=== PATIENT | female | born 1945 | race Caucasian/White ===

== ENCOUNTER → 2016-08-30 | Outpatient (REF) | payer MEDICARE ==
[~2016-08-30] MED LIST: /DULO30CA OR; /QUET10TA OR; /TIOT18INH INH; ABIL2TAB; ABIL2TAB OR; ACET500C OR; ALBUTEROL LIQ; ALLE25CA OR; CLAR5CHW; DULO20CA OR; FAMCICLOVIR PO; FOLI1TAB; FOLI1TAB OR; LEVO150T9 OR; LYSINE OR; NASOCORT; NIAC10TA; RISP1TAB OR; SANC20TA OR; SANTURA; SIMV20TA2; SIMV40TA2 OR; THERGRAN; TOPI50TA OR; TRAM100T OR; TRAM50TA2; ULTRTA OR; VENTAER IN; VITA100027 OR; VITA100C7; VITAMIN B COMPLE1 OR; VITAMIN D50000 UNT OR; [UNRECOGNIZED DRUG - OTHER]; [UNRECOGNIZED DRUG - OTHER]; [UNRECOGNIZED DRUG - OTHER] OR; [UNRECOGNIZED DRUG - OTHER] OR
[2016-08-30 20:44] LABS: BANDS 1 % (< 11)
== END ==
LOC: M LAB REF 16:52
PROVIDERS: ATTEND Nurse Practitioner Family
DX: R19.7 Diarrhea, unspecified (principal)

== ENCOUNTER → 2017-03-04 | Outpatient (CLI) | payer MEDICARE ==
[2017-03-04 08:45] LABS: ALBUMIN 3.5 GM/DL (3.2-5.2); ALBUMIN/GLOBULIN RATIO 1.03 (1.00-1.93); ALKALINE PHOSPHATASE 95 U/L (45-117); ALT/SGPT 23 U/L (12-78); ANION GAP 7 MEQ/L (8-16); AST/SGOT 19 U/L (15-37); BLOOD UREA NITROGEN 23 MG/DL (7-18); CALCIUM LEVEL 8.6 MG/DL (8.8-10.2); CARBON DIOXIDE LEVEL 28 MEQ/L (21-32); CHLORIDE LEVEL 111 MEQ/L (98-107); CREATININE FOR GFR 0.84 MG/DL (0.55-1.02); GLOMERULAR FILTRATION RATE > 60.0 (>39); GLUCOSE, FASTING 72 MG/DL (83-110); LITHIUM LEVEL 0.27 MEQ/L (0.60-1.20); POTASSIUM SERUM 4.1 MEQ/L (3.5-5.1); SODIUM LEVEL 146 MEQ/L (136-145); TOTAL PROTEIN 6.9 GM/DL (6.4-8.2)
== END ==
LOC: M LAB 07:43
PROVIDERS: ATTEND Psychiatry & Neurology Psychiatry
DX: Z51.81 Encounter for therapeutic drug level monitoring (principal); Z79.899 Other long term (current) drug therapy

== ENCOUNTER → 2018-01-19 | Outpatient (CLI) | payer MEDICARE | LOC: M RAD 17:35 | DX: M25.562 Pain in left knee (principal) | CPT/HCPCS: 73721 ==

== ENCOUNTER → 2018-03-01 | Outpatient (REF) | payer MEDICARE ==
[2018-03-01 18:55] LABS: C REACTIVE PROTEIN QUANTITATIV 0.44 MG/DL (0.00-0.30)
[2018-03-07 00:06] LABS: ANCA-ATYPICAL <1:20 titer (Neg:<1:20); ANTI-SACCHAROMYCES CEREV. IgA 106.1 Units (0.0-24.9); ANTI-SACCHAROMYCES CEREV. IgG 57.9 Units (0.0-24.9); CYTOPLASMIC NEUTROP AB ANCA-C <1:20 titer (Neg:<1:20); PERINUCLEAR AB ANCA-P <1:20 titer (Neg:<1:20)
== END ==
LOC: M LAB REF 16:58
DX: R19.7 Diarrhea, unspecified (principal); R19.4 Change in bowel habit; R10.32 Left lower quadrant pain
CPT/HCPCS: 86256

== ENCOUNTER → 2018-05-03 | Outpatient (CLI) | payer MEDICARE ==
[~2018-05-03] MED LIST changes: -/DULO30CA OR; -/QUET10TA OR; -/TIOT18INH INH; -ABIL2TAB; -ABIL2TAB OR; -ACET500C OR; -ALBUTEROL LIQ; -ALLE25CA OR; -CLAR5CHW; -DULO20CA OR; +E-Z-GAS II EFFERVESCENT PACKET (SODIUM BICARB./CITRIC ACID/SIMETHICONE) As Ordered; +E-Z-HD 98% w/w 340GM SUSP BTL As Ordered; +E-Z-PAQUE 96% w/w SUSP 176GM BTL As Ordered; -FAMCICLOVIR PO; -FOLI1TAB; -FOLI1TAB OR; -LEVO150T9 OR; -LYSINE OR; -NASOCORT; -NIAC10TA; -RISP1TAB OR; -SANC20TA OR; -SANTURA; -SIMV20TA2; -SIMV40TA2 OR; -THERGRAN; -TOPI50TA OR; -TRAM100T OR; -TRAM50TA2; -ULTRTA OR; -VENTAER IN; -VITA100027 OR; -VITA100C7; -VITAMIN B COMPLE1 OR; -VITAMIN D50000 UNT OR; -[UNRECOGNIZED DRUG - OTHER]; -[UNRECOGNIZED DRUG - OTHER]; -[UNRECOGNIZED DRUG - OTHER] OR; -[UNRECOGNIZED DRUG - OTHER] OR
== END ==
LOC: M RAD 08:09
DX: K44.9 Diaphragmatic hernia without obstruction or gangrene (principal); K21.9 Gastro-esophageal reflux disease without esophagitis; K22.4 Dyskinesia of esophagus; R19.4 Change in bowel habit; R19.7 Diarrhea, unspecified; Z86.010 Personal history of colon polyps
CPT/HCPCS: 74245

== ENCOUNTER → 2018-10-02 | Outpatient (CLI) | payer MEDICARE ==
[~2018-10-02] MED LIST changes: +/DULO30CA OR; +/QUET10TA OR; +/TIOT18INH INH; +ABIL2TAB; +ABIL2TAB OR; +ACET500C OR; +ALBUTEROL LIQ; +ALLE25CA OR; +CLAR5CHW; +DULO20CA OR; -E-Z-GAS II EFFERVESCENT PACKET (SODIUM BICARB./CITRIC ACID/SIMETHICONE) As Ordered; -E-Z-HD 98% w/w 340GM SUSP BTL As Ordered; -E-Z-PAQUE 96% w/w SUSP 176GM BTL As Ordered; +FAMCICLOVIR PO; +FOLI1TAB; +FOLI1TAB OR; +LEVO150T9 OR; +LYSINE OR; +NASOCORT; +NIAC10TA; +RISP1TAB OR; +SANC20TA OR; +SANTURA; +SIMV20TA2; +SIMV40TA2 OR; +THERGRAN; +TOPI50TA OR; +TRAM100T OR; +TRAM50TA2; +ULTRTA OR; +VENTAER IN; +VITA100027 OR; +VITA100C7; +VITAMIN B COMPLE1 OR; +VITAMIN D50000 UNT OR; +[UNRECOGNIZED DRUG - OTHER]; +[UNRECOGNIZED DRUG - OTHER]; +[UNRECOGNIZED DRUG - OTHER] OR; +[UNRECOGNIZED DRUG - OTHER] OR
--- NOTE | 2018-10-02 14:31 | REP ---
Clinical: Transient ischemic attack with visual disturbances. Technique: Minaya scale and color Doppler evaluation using linear high frequency transducer Findings: Two-dimensional minaya scale and color images demonstrate mild mixed atheromatous plaquing. Color Doppler interrogation demonstrates normal arterial wave patterns and velocities with no significant spectral broadening. Normal flow direction is appreciated in the bilateral vertebral arteries. RIGHT (cm/s) LEFT (cm/s) ICA peak systolic velocity 70.9 107.0 ICA diastolic velocity 17.7 32.9 ECA peak systolic velocity 79.7 98.8 CCA peak systolic velocity 60.5 99.5 ICA/CCA ratio 1.17 1.08 Impression: No hemodynamically significant areas of narrowing or stenosis appreciated. Based on set standards narrowing falls within the less than 50% range. Electronically Signed by Tristin Yañez MD 10/02/2018 02:23 P
--- NOTE | 2018-10-02 17:05 | REP ---
MR BRAIN WITHOUT CONTRAST: HISTORY: TIA. Several punctate areas of increased signal intensity on t2 weighted images are present in the periventricular and subcortical white matter. This represents small vessel ischemic disease. There is no intraparenchymal hemorrhage, infarct mass or midline shift. The ventricular system and cortical sulci are dilated consistent with minimal volume loss. There is no extracerebral collection. The sinuses are clear. IMPRESSION:1. Minimal small vessel ischemic disease. 2. Minimal volume loss. Electronically Signed by Christian Gaming MD 10/03/2018 08:41 A
== END ==
LOC: M RAD 13:07
PROVIDERS: ATTEND Nurse Practitioner Family
DX: I67.82 Cerebral ischemia (principal)

== ENCOUNTER → 2018-11-15 | Outpatient (CLI) | payer MEDICARE ==
[~2018-11-15] MED LIST changes: -/DULO30CA OR; -/QUET10TA OR; -/TIOT18INH INH; +CYMB1CAP4 OR; +CYMB1CAP5 OR; -DULO20CA OR; +SERO1TAB OR; +SPIR1CAP INH
[2018-11-15 16:54] LABS: ALT/SGPT 19 U/L (12-78); BILIRUBIN,TOTAL 1.3 MG/DL (0.2-1.0); BLOOD UREA NITROGEN 14 MG/DL (7-18); CALCIUM LEVEL 9.2 MG/DL (8.8-10.2); CARBON DIOXIDE LEVEL 30 MEQ/L (21-32); CHLORIDE LEVEL 106 MEQ/L (98-107); CREATININE FOR GFR 0.64 MG/DL (0.55-1.30); GLOMERULAR FILTRATION RATE > 60.0 (>39); GLUCOSE, FASTING 92 MG/DL (70-100); POTASSIUM SERUM 4.6 MEQ/L (3.5-5.1); SODIUM LEVEL 139 MEQ/L (136-145)
[2018-11-15 17:24] LABS: BASO % 0.7 % (0.0-1.0); EOS # 0.3 10^3/uL (0.0-0.50); EOS % 5.4 % (0.0-3.0); HEMATOCRIT 46.4 % (36.0-47.0); LYMPH # 1.6 10^3/uL (1.5-4.5); LYMPH % 27.4 % (24.0-44.0); MEAN CORPUSCULAR HEMOGLOBIN 30.1 pg (27.0-33.0); MEAN CORPUSCULAR HGB CONC 32.3 g/dl (32.0-36.5); MEAN CORPUSCULAR VOLUME 93.2 fl (80.0-96.0); MONO # 0.4 10^3/uL (0.0-0.8); MONO % 6.9 % (0.0-5.0); NEUTROPHILS # 3.4 10^3/uL (1.8-7.7); NEUTROPHILS % 59.3 % (36.0-66.0); PLATELET COUNT, AUTOMATED 246 10^3/uL (150-450); RED BLOOD COUNT 4.98 10^6/uL (4.00-5.40); WHITE BLOOD COUNT 5.8 10^3/uL (4.0-10.0)
[2018-11-19 00:10] LABS: EBV AB TO NUCLEAR ANTIGEN >600.0 U/mL (0.0-17.9); EBV VIRAL CAPSID AG IgG >600.0 U/mL (0.0-17.9); EBV VIRAL CAPSID AG IgM <36.0 U/mL (0.0-35.9); Lyme Disease IgG/IgM Antibodie <0.91 ISR (0.00-0.90); Lyme Disease IgM Ab Quantitati <0.80 index (0.00-0.79)
== END ==
LOC: M WUC 11:46
PROVIDERS: ATTEND Physician Assistant
DX: R53.81 Other malaise (principal)

== ENCOUNTER → 2019-07-17 | Outpatient (REF) | payer MEDICARE ==
[2019-07-20 00:07] LABS: EBV VIRAL CAPSID AG IgG >600.0 U/mL (0.0-17.9); EBV VIRAL CAPSID AG IgM <36.0 U/mL (0.0-35.9)
== END ==
LOC: M LAB REF 16:42
PROVIDERS: ATTEND Nurse Practitioner Family
DX: R53.83 Other fatigue (principal)

== ENCOUNTER → 2019-12-18 | Outpatient (REF) | payer MEDICARE ==
[2019-12-20 20:09] LABS: ENDOMYSIAL ABY IgA Negative (Negative); TISSUE TRANSGLUTAMINASE IgA <2 U/mL (0-3)
== END ==
LOC: M LAB REF 16:13
PROVIDERS: ATTEND Nurse Practitioner Family
DX: E03.9 Hypothyroidism, unspecified (principal); M81.0 Age-related osteoporosis without current pathological fracture; E55.9 Vitamin D deficiency, unspecified

== ENCOUNTER → 2020-03-12 | Outpatient (REF) | payer MEDICARE ==
[2020-03-14 17:09] LABS: ENDOMYSIAL ABY IgA Negative (Negative); TISSUE TRANSGLUTAMINASE IgA <2 U/mL (0-3)
== END ==
LOC: M LAB REF 18:03
PROVIDERS: ATTEND Registered Nurse
DX: K50.919 Crohn's disease, unspecified, with unspecified complications (principal)

== ENCOUNTER → 2020-06-25 | Outpatient (REF) | payer MEDICARE | LOC: M LAB REF 16:30 | PROVIDERS: ATTEND Physician Assistant | DX: R30.0 Dysuria (principal) ==

== ENCOUNTER → 2020-07-18 | Outpatient (CLI) | payer MEDICARE ==
--- NOTE | 2020-07-18 12:19 | REP ---
INDICATION: FLANK PAIN COMPARISON: None TECHNIQUE: Real time blanchard scale ultrasound examination using curved array transducer. FINDINGS: Bilateral kidneys are normal in contour, size, echogenicity, and reniform shape without hydronephrosis, nephrolithiasis, cystic or renal mass lesion. No perinephric fluid collection. Right kidney measures 9.9 x 5.1 x 4.1 cm. Left kidney measures 11.6 x 4.2 x 4.9 cm. The bladder is normal in appearance and bilateral ureteral jets are identified. IMPRESSION: 1. Normal renal ultrasound. <Electronically signed by Tristin Yañez > 07/18/20 [id number]
== END ==
LOC: M RAD 11:46
PROVIDERS: ATTEND Registered Nurse
DX: R10.9 Unspecified abdominal pain (principal)

== ENCOUNTER → 2020-10-21 | Outpatient (CLI) | payer MEDICARE ==
--- NOTE | 2020-10-21 19:29 | REP ---
INDICATION: STRAIN OF MUSCLE AND TENDON OF BACK WALL OF THORAX, INIT. COMPARISON: None. TECHNIQUE: Three AP and lateral views thoracic spine. FINDINGS: No compression fracture or malalignment. There is normal thoracic kyphosis. There is mild to moderate diffuse spurring. There is mild disc space narrowing and subchondral sclerosis at virtually all levels. The posterior elements are intact. IMPRESSION: Diffuse degenerative changes without fracture or dislocation. <Electronically signed by Jordan Minaya > 10/21/20 [id number]
== END ==
LOC: M RAD 17:21
PROVIDERS: ATTEND Physician Assistant
DX: S29.012A Strain of muscle and tendon of back wall of thorax, initial encounter (principal); X58.XXXA Exposure to other specified factors, initial encounter; Y92.89 Other specified places as the place of occurrence of the external cause; Y93.9 Activity, unspecified; Y99.9 Unspecified external cause status

== ENCOUNTER → 2020-11-28 | Outpatient (REF) | payer MEDICARE ==
[2020-11-28 13:19] LABS: MONO REFLEX EBV VCA IgM NEGATIVE (NEGATIVE)
[2020-11-29 19:07] LABS: EBV VIRAL CAPSID AG IgM <36.0 U/mL (0.0-35.9); Lyme Disease IgG/IgM Antibodie <0.91 ISR (0.00-0.90); Lyme Disease IgM Ab Quantitati <0.80 index (0.00-0.79)
== END ==
LOC: M LAB REF 12:07
PROVIDERS: ATTEND Internal Medicine
DX: R51.9 Headache, unspecified (principal); R53.83 Other fatigue; R50.9 Fever, unspecified

== ENCOUNTER 2021-09-10 11:42 | Emergency (ER) | payer MEDICARE ==
[~2021-09-10] VITALS: Ht 167.6 cm; Wt 76.3 kg
[2021-09-10] MEDS ORDERED: ARMO120T (11:57)
[2021-09-10 14:30] LABS: BASO # 0.1 10^3/uL (0.0-0.2); BASO % 0.9 % (0.0-1.0); EOS # 0.2 10^3/uL (0.0-0.5); EOS % 2.8 % (0.0-3.0); HEMATOCRIT 43.7 % (36.0-47.0); HEMOGLOBIN 14.4 g/dl (12.0-15.5); LYMPH # 1.3 10^3/uL (1.5-5.0); LYMPH % 24.6 % (24.0-44.0); MEAN CORPUSCULAR HEMOGLOBIN 30.3 pg (27.0-33.0); MONO # 0.4 10^3/uL (0.0-0.8); MONO % 8.3 % (2.0-8.0); NEUTROPHILS # 3.3 10^3/uL (1.5-8.5); NEUTROPHILS % 63.2 % (36.0-66.0); PLATELET COUNT, AUTOMATED 229 10^3/uL (150-450); RED BLOOD COUNT 4.75 10^6/uL (4.00-5.40); WHITE BLOOD COUNT 5.3 10^3/uL (4.0-10.0)
[2021-09-10 14:56] LABS: ALBUMIN 3.7 GM/DL (3.2-5.2); ALT/SGPT 35 U/L (12-78); BILIRUBIN,DIRECT 0.2 MG/DL (0.0-0.2); BILIRUBIN,TOTAL 1.1 MG/DL (0.2-1.0); BLOOD UREA NITROGEN 14 MG/DL (7-18); CALCIUM LEVEL 9.4 MG/DL (8.8-10.2); CARBON DIOXIDE LEVEL 30 MEQ/L (21-32); CHLORIDE LEVEL 107 MEQ/L (98-107); CREATININE FOR GFR 0.65 MG/DL (0.55-1.30); GLOMERULAR FILTRATION RATE > 60.0 (>39); GLUCOSE, FASTING 93 MG/DL (70-100); LIPASE 93 U/L (73-393); POTASSIUM SERUM 4.6 MEQ/L (3.5-5.1); SODIUM LEVEL 140 MEQ/L (136-145); TOTAL PROTEIN 7.2 GM/DL (6.4-8.2)
[2021-09-10] MEDS ORDERED: LIDO1PAD13 TOP (16:21)
[2021-09-10 16:30] VITALS: BP 112/59
== END 2021-09-10 17:16 | disposition home or self-care (01) ==
LOC: M ED 11:42
DX: R07.89 Other chest pain (principal); G89.29 Other chronic pain; M54.9 Dorsalgia, unspecified; Z88.0 Allergy status to penicillin; Z88.1 Allergy status to other antibiotic agents; Z88.5 Allergy status to narcotic agent; Z88.8 Allergy status to other drugs, medicaments and biological substances

== ENCOUNTER → 2021-09-17 | Outpatient (REF) | payer MEDICARE ==
[~2021-09-17] MED LIST changes: +ARMO120T; +LIDO1PAD13 TOP
== END ==
LOC: M LAB REF 16:17
PROVIDERS: ATTEND Physician Assistant Medical
DX: E78.00 Pure hypercholesterolemia, unspecified (principal)

== ENCOUNTER → 2022-03-18 | Outpatient (REF) | payer MEDICARE | LOC: M WUC 21:16 | PROVIDERS: ATTEND Physician Assistant | DX: R50.9 Fever, unspecified (principal) ==

== ENCOUNTER → 2022-03-18 | Outpatient (CLI) | payer MEDICARE ==
[2022-03-18 19:11] LABS: BASO # 0.1 10^3/uL (0.0-0.2); BASO % 0.9 % (0.0-1.0); EOS # 0.1 10^3/uL (0.0-0.5); EOS % 1.6 % (0.0-3.0); HEMOGLOBIN 13.8 g/dl (12.0-15.5); LYMPH # 1.6 10^3/uL (1.5-5.0); LYMPH % 27.9 % (24.0-44.0); MEAN CORPUSCULAR HEMOGLOBIN 30.7 pg (27.0-33.0); MEAN CORPUSCULAR HGB CONC 32.9 g/dl (32.0-36.5); MEAN CORPUSCULAR VOLUME 93.3 fl (80.0-96.0); MONO # 0.4 10^3/uL (0.0-0.8); MONO % 7.8 % (2.0-8.0); NEUTROPHILS # 3.5 10^3/uL (1.5-8.5); NEUTROPHILS % 61.4 % (36.0-66.0); PLATELET COUNT, AUTOMATED 219 10^3/uL (150-450); WHITE BLOOD COUNT 5.6 10^3/uL (4.0-10.0)
[2022-03-18 19:45] LABS: ERYTHROCYTE SEDIMENTATION RATE 12 mm/hr (0-30)
[2022-03-18 19:53] LABS: ALBUMIN 3.6 GM/DL (3.2-5.2); ALT/SGPT 33 U/L (12-78); BILIRUBIN,TOTAL 1.1 MG/DL (0.2-1.0); BLOOD UREA NITROGEN 12 MG/DL (7-18); C REACTIVE PROTEIN QUANTITATIV 0.39 MG/DL (0.00-0.30); CALCIUM LEVEL 9.1 MG/DL (8.8-10.2); CARBON DIOXIDE LEVEL 30 MEQ/L (21-32); CHLORIDE LEVEL 107 MEQ/L (98-107); CREATININE FOR GFR 0.71 MG/DL (0.55-1.30); GLOMERULAR FILTRATION RATE > 60.0 (>39); GLUCOSE, FASTING 80 MG/DL (70-100); POTASSIUM SERUM 4.1 MEQ/L (3.5-5.1); SODIUM LEVEL 138 MEQ/L (136-145)
== END ==
LOC: M LAB 18:40
PROVIDERS: ATTEND Physician Assistant
DX: R50.9 Fever, unspecified (principal)

== ENCOUNTER → 2022-05-27 | Outpatient (REF) | payer MEDICARE ==
[2022-05-27 19:57] LABS: RHEUMATOID FACTOR QUANT < 3.5 IU/ML (<14); URIC ACID 4.6 MG/DL (3.1-7.8)
== END ==
LOC: M LAB REF 16:10
PROVIDERS: ATTEND Internal Medicine
DX: H04.129 Dry eye syndrome of unspecified lacrimal gland (principal)

== ENCOUNTER → 2022-08-03 | Outpatient (CLI) | payer MEDICARE | LOC: M WUC 10:39 | PROVIDERS: ATTEND Internal Medicine | DX: M54.2 Cervicalgia (principal) ==

== ENCOUNTER → 2022-10-22 | Outpatient (CLI) | payer MEDICARE | LOC: M PLAIMG 13:58 | PROVIDERS: ATTEND Nurse Practitioner | DX: M47.812 Spondylosis without myelopathy or radiculopathy, cervical region (principal); G89.29 Other chronic pain; M50.30 Other cervical disc degeneration, unspecified cervical region; Z12.31 Encounter for screening mammogram for malignant neoplasm of breast; Z98.1 Arthrodesis status ==

== ENCOUNTER → 2022-10-22 | Outpatient (CLI) | payer MEDICARE | LOC: M WHC 13:55 | PROVIDERS: ATTEND Internal Medicine | DX: Z12.31 Encounter for screening mammogram for malignant neoplasm of breast (principal) ==

== ENCOUNTER → 2022-12-17 | Outpatient (CLI) | payer MEDICARE ==
[2022-12-17 18:54] LABS: RED BLOOD COUNT 5.04 10^6/uL (4.00-5.40); WHITE BLOOD COUNT 5.6 10^3/uL (4.0-10.0)
[2022-12-17 18:55] LABS: BASO % 0.5 % (0.0-1.0); EOS # 0.1 10^3/uL (0.0-0.5); EOS % 2.3 % (0.0-3.0); HEMATOCRIT 46.6 % (36.0-47.0); HEMOGLOBIN 15.4 g/dl (12.0-15.5); LYMPH # 1.7 10^3/uL (1.5-5.0); LYMPH % 30.2 % (24.0-44.0); MEAN CORPUSCULAR HEMOGLOBIN 30.6 pg (27.0-33.0); MEAN CORPUSCULAR VOLUME 92.5 fl (80.0-96.0); MONO # 0.4 10^3/uL (0.0-0.8); NEUTROPHILS # 3.3 10^3/uL (1.5-8.5); NEUTROPHILS % 59.6 % (36.0-66.0); PLATELET COUNT, AUTOMATED 228 10^3/uL (150-450)
[2022-12-17 19:25] LABS: ALKALINE PHOSPHATASE 99 U/L (46-116); ALT/SGPT 17 U/L (7.0-40); AST/SGOT 16 U/L (<34); BILIRUBIN,TOTAL 1.4 MG/DL (0.3-1.2); BLOOD UREA NITROGEN 19 MG/DL (9-23); CALCIUM LEVEL 8.9 MG/DL (8.3-10.6); CARBON DIOXIDE LEVEL 30 MMOL/L (20-31); CHLORIDE LEVEL 105 MMOL/L (98-107); CREATININE FOR GFR 0.75 MG/DL (0.55-1.30); GLOMERULAR FILTRATION RATE > 60.0 (>39); GLUCOSE, FASTING 97 MG/DL (74-106); POTASSIUM SERUM 4.2 MMOL/L (3.5-5.1); SODIUM LEVEL 139 MMOL/L (136-145)
[2022-12-17 19:26] LABS: FREE T4 0.92 NG/DL (0.89-1.76); THYROID STIMULATING HORMONE 0.366 uIU/ML (0.55-4.78)
[2022-12-17 19:27] LABS: FOLATE 10.1 NG/ML (>5.4); VITAMIN B12 LEVEL 304 PG/ML (211-911)
[2022-12-21 14:09] LABS: EBV AB TO NUCLEAR ANTIGEN >600.0 U/mL (0.0-17.9); EBV VIRAL CAPSID AG IgG >600.0 U/mL (0.0-17.9); EBV VIRAL CAPSID AG IgM 40.9 U/mL (0.0-35.9)
== END ==
LOC: M LAB 18:03
PROVIDERS: ATTEND Physician Assistant
DX: R53.83 Other fatigue (principal)

== ENCOUNTER → 2022-12-21 | Outpatient (REF) | payer MEDICARE ==
[2022-12-21 13:06] LABS: INR 0.85; PROTHROMBIN TIME 11.8 SECONDS (12.5-14.5)
[2022-12-21 13:14] LABS: APPEARANCE, URINE CLEAR (CLEAR); BACTERIA, URINE AUTO NEGATIVE (NEGATIVE); BILIRUBIN, URINE AUTO NEGATIVE (NEGATIVE); BLOOD, URINE BLOOD NEGATIVE (NEGATIVE); COLOR, URINE YELLOW (YELLOW); GLUCOSE, URINE (UA) AUTO NEGATIVE (NEGATIVE); KETONE, URINE AUTO NEGATIVE (NEGATIVE); LEUKOCYTE ESTERASE, URINE AUTO NEGATIVE (NEGATIVE); MUCUS, URINE SMALL (NEGATIVE); NITRITE, URINE AUTO NEGATIVE (NEGATIVE); PROTEIN, URINE AUTO NEGATIVE (NEGATIVE); RBC, URINE AUTO 2 /HPF (0-3); SPECIFIC GRAVITY URINE AUTO 1.024 (1.002-1.035); SQUAMOUS EPITHELIAL CELL UR AU 0 /HPF (0-6); UROBILINOGEN, URINE AUTO 0.2 mg/dL (0.0-2.0); WBC, URINE AUTO 0 /HPF (0-3)
== END ==
LOC: M LAB REF 12:18
PROVIDERS: ATTEND Internal Medicine
DX: Z01.818 Encounter for other preprocedural examination (principal)

== ENCOUNTER → 2023-01-13 | Outpatient (CLI) | payer MEDICARE ==
[2023-01-15 14:11] LABS: EBV AB TO NUCLEAR ANTIGEN >600.0 U/mL (0.0-17.9); EBV VIRAL CAPSID AG IgG >600.0 U/mL (0.0-17.9); EBV VIRAL CAPSID AG IgM 92.6 U/mL (0.0-35.9)
== END ==
LOC: M WUC 15:14
PROVIDERS: ATTEND Internal Medicine
DX: R53.83 Other fatigue (principal); B27.90 Infectious mononucleosis, unspecified without complication

== ENCOUNTER → 2023-01-20 | Outpatient (CLI) | payer MEDICARE | LOC: M WUC 14:33 | PROVIDERS: ATTEND Internal Medicine | DX: M24.152 Other articular cartilage disorders, left hip (principal); M24.19 Other articular cartilage disorders, other specified site ==

== ENCOUNTER → 2023-04-28 | Outpatient (REF) | payer MEDICARE ==
[2023-04-28 14:25] LABS: INR 0.92; PROTHROMBIN TIME 12.1 SECONDS (12.5-14.5)
[2023-04-28 14:26] LABS: PARTIAL THROMBOPLASTIN TIME 28.5 SECONDS (24.8-34.2)
== END ==
LOC: M LAB REF 12:19
PROVIDERS: ATTEND Internal Medicine
DX: Z01.818 Encounter for other preprocedural examination (principal)

== ENCOUNTER → 2023-08-11 | Outpatient (CLI) | payer MEDICARE | LOC: M WUC 11:11 | PROVIDERS: ATTEND Internal Medicine | DX: R06.2 Wheezing (principal); R05.9 Cough, unspecified ==

== ENCOUNTER → 2023-08-11 | Outpatient (REF) | payer MEDICARE | LOC: M LAB REF 16:46 | PROVIDERS: ATTEND Internal Medicine | DX: R05.9 Cough, unspecified (principal) ==

== ENCOUNTER → 2023-10-05 | Outpatient (CLI) | payer MEDICARE ==
[~2023-10-05] MED LIST changes: +METHACHOLINE KIT (6 VIAL.NEB PREMIX) INH ONE
== END ==
LOC: M CARPUL 07:52
PROVIDERS: ATTEND Internal Medicine
DX: R06.2 Wheezing (principal)
CPT/HCPCS: 94070; 95070; J7674

== ENCOUNTER → 2023-10-28 | Outpatient (REF) | payer MEDICARE ==
[~2023-10-28] MED LIST changes: -METHACHOLINE KIT (6 VIAL.NEB PREMIX) INH ONE
[2023-10-28 17:18] LABS: INR 0.96; PARTIAL THROMBOPLASTIN TIME 28.6 SECONDS (24.8-34.2); PROTHROMBIN TIME 12.5 SECONDS (12.5-14.5)
[2023-10-28 17:36] LABS: APPEARANCE, URINE CLEAR (CLEAR); BACTERIA, URINE AUTO NEGATIVE (NEGATIVE); BILIRUBIN, URINE AUTO NEGATIVE (NEGATIVE); BLOOD, URINE BLOOD NEGATIVE (NEGATIVE); COLOR, URINE YELLOW (YELLOW); GLUCOSE, URINE (UA) AUTO NEGATIVE (NEGATIVE); KETONE, URINE AUTO NEGATIVE (NEGATIVE); LEUKOCYTE ESTERASE, URINE AUTO NEGATIVE (NEGATIVE); NITRITE, URINE AUTO NEGATIVE (NEGATIVE); PROTEIN, URINE AUTO NEGATIVE (NEGATIVE); RBC, URINE AUTO 0 /HPF (0-3); SQUAMOUS EPITHELIAL CELL UR AU 0 /HPF (0-6); UROBILINOGEN, URINE AUTO 0.2 mg/dL (0.0-2.0); WBC, URINE AUTO 1 /HPF (0-3)
== END ==
LOC: M LAB REF 16:13
PROVIDERS: ATTEND Internal Medicine
DX: Z01.818 Encounter for other preprocedural examination (principal); Z79.899 Other long term (current) drug therapy

== ENCOUNTER → 2023-12-23 | Outpatient (CLI) | payer MEDICARE | LOC: M WUC 09:39 | PROVIDERS: ATTEND Nurse Practitioner Family | DX: M25.552 Pain in left hip (principal); M79.652 Pain in left thigh ==

== ENCOUNTER → 2024-03-01 | Outpatient (CLI) | payer MEDICARE ==
[2024-03-02 15:02] LABS: EBV VIRAL CAPSID AG IGG > 750.00 U/mL (<18.00); EBV VIRAL CAPSID AG IGM < 36.00 U/mL (<36.00)
== END ==
LOC: M LAB 12:30
PROVIDERS: ATTEND Physician Assistant
DX: R53.83 Other fatigue (principal)

== ENCOUNTER → 2024-03-04 | Outpatient (REF) | payer MEDICARE | LOC: M LAB REF 19:02 | PROVIDERS: ATTEND Physician Assistant Medical | DX: J06.9 Acute upper respiratory infection, unspecified (principal) ==

== ENCOUNTER → 2024-05-11 | Outpatient (CLI) | payer MEDICARE ==
[~2024-05-11] MED LIST changes: +GASTROGRAFIN SOLUTION 30ML As Ordered ONE; +ISOVUE-370 76% 100ML VIAL As Ordered ONE
== END ==
LOC: M RAD 11:55
PROVIDERS: ATTEND Internal Medicine
DX: K40.20 Bilateral inguinal hernia, without obstruction or gangrene, not specified as recurrent (principal)
CPT/HCPCS: 74177; Q9963; Q9967

== ENCOUNTER → 2024-05-28 | Outpatient (CLI) | payer OTHER ==
[~2024-05-28] MED LIST changes: -GASTROGRAFIN SOLUTION 30ML As Ordered ONE; -ISOVUE-370 76% 100ML VIAL As Ordered ONE
== END ==
LOC: M WUC 11:35
PROVIDERS: ATTEND Internal Medicine
DX: R05.9 Cough, unspecified (principal)

== ENCOUNTER → 2024-07-19 | Outpatient (CLI) | payer OTHER | LOC: M WUC 11:21 | PROVIDERS: ATTEND Chiropractor | DX: M99.03 Segmental and somatic dysfunction of lumbar region (principal); M54.42 Lumbago with sciatica, left side; M99.01 Segmental and somatic dysfunction of cervical region; M50.33 Other cervical disc degeneration, cervicothoracic region; M51.34 Other intervertebral disc degeneration, thoracic region ==

== ENCOUNTER → 2024-07-26 | Outpatient (REF) | payer OTHER ==
[2024-07-26 13:05] LABS: RSV AMPLIFICATION NEGATIVE (NEGATIVE)
== END ==
LOC: M LAB REF 12:09
PROVIDERS: ATTEND Internal Medicine
DX: R06.02 Shortness of breath (principal)

== ENCOUNTER → 2024-08-02 | Outpatient (CLI) | payer MEDICARE | LOC: M PLAIMG 13:55 | PROVIDERS: ATTEND Internal Medicine | DX: R05.3 Chronic cough (principal); E04.9 Nontoxic goiter, unspecified ==

== ENCOUNTER → 2024-08-13 | Outpatient (CLI) | payer MEDICARE | LOC: M WHC 14:06 | PROVIDERS: ATTEND Internal Medicine | DX: E04.9 Nontoxic goiter, unspecified (principal) ==

== ENCOUNTER → 2024-08-22 | Outpatient (CLI) | payer MEDICARE | LOC: M WUC 13:49 | PROVIDERS: ATTEND Student in an Organized Health Care Education/Training Program | DX: M19.032 Primary osteoarthritis, left wrist (principal) ==

== ENCOUNTER → 2025-04-11 | Outpatient (REF) | payer MEDICARE ==
[2025-04-15 15:41] LABS: HOMOCYST(E)INE SERUM 13.3 umol/L (< or = 13.4)
[2025-04-16 00:15] LABS: CARDIOLIPIN IGA ANTIBODY < 2.0 APL-U/mL (<20.0); CARDIOLIPIN IGG ANTIBODY < 2.0 GPL-U/mL (<20.0); CARDIOLIPIN IGM ANTIBODY < 2.0 MPL-U/mL (<20.0)
[2025-04-17 00:48] LABS: ANTI THROMBIN 3 FUNCT ACTIVITY 140 % normal (80-135); PROTEIN C FUNCTIONAL ACTIVITY 157 % normal (70-180); PROTEIN S FUNCTIONAL ACTIVITY 146 % normal (60-140)
[2025-04-17 02:03] LABS: FACTOR V LEIDEN FOR MEDINET NEGATIVE
[2025-04-17 13:03] LABS: MTHFR DNA ANALYSIS POSITIVE
[2025-04-17 14:32] LABS: FACTOR II PROTHROMBIN GENE AN POSITIVE
[2025-04-23 10:49] LABS: DRVV SCREEN 36.0 SECONDS
[2025-04-23 11:11] LABS: PTT LUPUS TYPE ANTICOAG SCREEN 0.91 (0-1.20)
== END ==
LOC: M LAB REF 17:55
PROVIDERS: ATTEND Internal Medicine
DX: Z86.73 Personal history of transient ischemic attack (TIA), and cerebral infarction without residual deficits (principal)

== ENCOUNTER → 2025-06-19 | Outpatient (REF) | payer MEDICARE | LOC: M LAB REF 17:36 | PROVIDERS: ATTEND Internal Medicine | DX: M79.10 Myalgia, unspecified site (principal) ==